=== PATIENT | female | born 1950 | race Caucasian/White ===

== ENCOUNTER 2016-10-15 14:56 | Emergency (ER) | payer MEDICARE ==
[2016-10-15 16:30] LABS: BASOPHIL 0.4 % (0-2); EOSINOPHIL 4.2 % (0-7); HGB 12.2 g/dl (12.5-16.0); LYMPHOCYTE 19.8 % (15-48); MCH 31.2 pg (25.0-31.0); MCV 94.6 fL (78.0-100.0); MONOCYTE 5.2 % (0-12); MPV 9.8 fL (6.0-9.5); NEUTROPHIL 70.4 % (41-80); PLT 322 K/uL (150-400); RBC 3.91 M/uL (4.20-5.40); RDW 14.9 % (11.5-14.0); WBC 11.3 K/uL (4.0-10.5)
[2016-10-15 16:39] LABS: INR 1.07 (0.9-1.2); PROTHROMBIN TIME 13.5 SECONDS (11.7-14.0); PTT 28.9 SECONDS (23.2-31.4)
[2016-10-15 16:48] LABS: ALBUMIN 3.5 g/dL (3.4-4.8); BILIRUBIN - TOTAL 0.2 mg/dL (0.1-1.0); CREATININE 1.3 mg/dL (0.5-1.0); GLOBULIN (CALCULATION) 3.1 g/dL (2.2-4.2); MAGNESIUM 1.88 mg/dL (1.40-2.10); TOTAL PROTEIN 6.6 g/dL (6.4-8.3)
[2016-10-15 16:50] LABS: CKMB 1.27 ng/mL (0.97-4.94); MYOGLOBIN 30 ng/mL (26-65); TROPONIN T < 0.010 ng/mL
[2016-10-15 16:51] LABS: PRO-BNP 178 pg/mL (0-125)
[2016-10-15 16:55] LABS: POTASSIUM 6.7 mmol/L (3.5-5.1)
[2016-12-01] MEDS ORDERED: MACROBID100 MG PO (14:40)
[2016-12-01] MEDS ORDERED: KLONOPIN0.5 MG PO (14:41)
[2016-12-01] MEDS ORDERED: LISINOPRIL10 MG PO (14:41)
[2016-12-01] MEDS ORDERED: NORCO 10-325 T1 EACH PO (14:42)
[2016-12-01] MEDS ORDERED: GABAPENTIN300 MG PO (14:43)
[2016-12-01] MEDS ORDERED: NOVOLOG FL100 UNIT/1 SC (14:44)
[2016-12-01] MEDS ORDERED: VOLTAREN **OUT75 MG PO (14:44)
[2016-12-01] MEDS ORDERED: LEVEMIR VI100 UNITS/ SC (14:45)
== END 2016-10-15 20:39 | disposition home or self-care (01) ==
LOC: FER 14:56
PROVIDERS: Internal Medicine
DX: E87.5 Hyperkalemia (principal); R05 Cough; R07.9 Chest pain, unspecified; I11.9 Hypertensive heart disease without heart failure; I25.10 Atherosclerotic heart disease of native coronary artery without angina pectoris; E11.9 Type 2 diabetes mellitus without complications; Z95.5 Presence of coronary angioplasty implant and graft; Z95.0 Presence of cardiac pacemaker
CPT/HCPCS: 36415; 71010; 80053; 82550; 82553; 83735; 83874; 83880; 84132; 84484; 85025; 85610; 85730; 93005; J0610; J1885; J2060; J2930